=== PATIENT | male | born 1980 | race Asian ===

== ENCOUNTER 2018-08-11 12:50 | Emergency (ER) | payer OTHER ==
[~2018-08-11] VITALS: Ht 167.6 cm; Wt 77.1 kg
--- NOTE | 2018-08-11 13:31 | RAD ---
EXAM: Lumbar spine, 3 views. HISTORY: Weightlifting injury COMPARISON: None. FINDINGS: Frontal, lateral and coned sacral views of the lumbar spine are obtained. There is no listhesis. The vertebral crandall are normal in height and the disc spaces are preserved. IMPRESSION: No acute osseous finding. Electronically signed by: Karen Bernal MD (08/11/2018 1:26 PM) [place] [id number]
[2018-08-11] MEDS ORDERED: CYCL-331 PO (13:55)
--- NOTE | 2018-08-11 13:57 | PHYS DOC ---
Past History Past Medical History: No Pertinent History Past Surgical History: No Surgical History Alcohol Use: Rarely Drug Use: None Adult General Chief Complaint Chief Complaint: BACK PAIN OR INJURY [facility] 38-year-old male presents with bilateral lumbar back pain. The patient was at the gym doing deadlifts when he started to feel a pull in his low back. He immediately dropped the weight. He believes he was using good for him. He denies leaning or twisting. He was wearing a weight belt but admits it may have been a bit high on his waist. The patient now has cramping pain of moderate intensity across his low back around L4-L5. 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 He had complete recovery after this incident. He denies fever or chills. He denies numbness tingling or pains down his legs. Review of Systems Review of Systems Constitutional: Denies fever or chills [] Eyes: Denies change in visual acuity, redness, or eye pain [] HENT: Denies nasal congestion or sore throat [] Respiratory: Denies cough or shortness of breath [] Cardiovascular: No additional information not addressed in HPI [] GI: Denies abdominal pain, nausea, vomiting, bloody stools or diarrhea [] : Denies dysuria or hematuria [] Musculoskeletal: Lumbar back pain[] Integument: Denies rash or skin lesions [] Neurologic: Denies headache, focal weakness or sensory changes [] Endocrine: Denies polyuria or polydipsia [] All other systems were reviewed and found to be within normal limits, except as documented in this note. Allergies Allergies Allergies Coded Allergies Type Severity Reaction Last Updated Verified No Known Drug Allergies 08/11/18 No Physical Exam Physical Exam Constitutional: Well developed, well nourished, no acute distress, non-toxic appearance. [] HENT: Normocephalic, atraumatic, bilateral external ears normal, oropharynx moist, no oral exudates, nose normal. [] Eyes: PERRLA, EOMI, conjunctiva normal, no discharge. [] Neck: Normal range of motion, no tenderness, supple, no stridor. [] Cardiovascular:Heart rate regular rhythm, no murmur [] Lungs & Thorax: Bilateral breath sounds clear to auscultation [] Abdomen: Bowel sounds normal, soft, no tenderness, no masses, no pulsatile masses. [] Skin: Warm, dry, no erythema, no rash. [] Back: Paraspinal lumbar muscle tenderness bilaterally L4-L5.[] Extremities: No tenderness, no cyanosis, no clubbing, ROM intact, no edema. [] Neurologic: Alert and oriented X 3, normal motor function, normal sensory function, no focal deficits noted. [] Psychologic: Affect normal, judgement normal, mood normal. [] Current Patient Data Vital Signs Vital Signs Date Time Temp Pulse Resp B/P (MAP) Pulse Ox O2 Delivery O2 Flow Rate FiO2 08/11/18 13:00 97.2 67 22 99 Room Air EKG EKG [] Radiology/Procedures Radiology/Procedures [] Impressions: EXAM: Lumbar spine, 3 views. HISTORY: Weightlifting injury COMPARISON: None. FINDINGS: Frontal, lateral and coned sacral views of the lumbar spine are obtained. There is no listhesis. The vertebral crandall are normal in height and the disc spaces are preserved. IMPRESSION: No acute osseous finding. Electronically signed by: Karen Alvarez MD (08/11/2018 1:26 PM) [facility] DICTATED AND SIGNED BY: KAREN ALVAREZ MD DATE: 08/11/18 [id number] CC: GIANNA CARLSON DO; NORBERT RECINOS MD Course & Med Decision Making Course & Med Decision Making Pertinent Labs and Imaging studies reviewed. (See chart for details) The patient's lumbar x-rays are negative for acute findings. Based on the history and examination, the patient appears to have a lumbar strain from lifting too much weight. I advised anti-inflammatories and given prescription for Flexeril. [] Dragon Disclaimer Dragon Disclaimer This electronic medical record was generated, in whole or in part, using a voice recognition dictation system. Departure Departure: Impression: Primary Impression: Strain of lumbar paraspinal muscle Disposition: HOME, SELF-CARE Condition: STABLE Referrals: NORBERT RECINOS MD (PCP) Patient Instructions: Low Back Strain with [facility]hab[facility] Scripts Cyclobenzaprine Hcl (CYCLOBENZAPRINE HCL) 10 Mg Tablet 1 TAB PO TID PRN for MUSCLE SPASMS, #30 TAB Prov: GIANNA CARLSON DO 08/11/18 Problem Qualifiers Primary Impression: Strain of lumbar paraspinal muscle Encounter type: initial encounter Qualified Codes: S39.012A - Strain of muscle, fascia and tendon of lower back, initial encounter GIANNA CARLSON DO Aug 11, 2018 13:57
[2018-08-11 14:36] VITALS: BP 129/77
== END 2018-08-11 14:05 | disposition home or self-care (01) ==
LOC: ER 12:50
DX: S39.012A Strain of muscle, fascia and tendon of lower back, initial encounter (principal); X50.9XXA Other and unspecified overexertion or strenuous movements or postures, initial encounter; Y93.B3 Activity, free weights; Y92.89 Other specified places as the place of occurrence of the external cause; Y99.8 Other external cause status
CPT/HCPCS: 72100; 99283